=== PATIENT | male | born 1970 | race Caucasian/White ===

== ENCOUNTER 2016-09-09 17:25 | Emergency (ER) | payer MEDICAID ==
[~2016-09-09] VITALS: Ht 180.3 cm; Wt 83.9 kg
--- NOTE | 2016-09-09 17:44 | NUR ---
dr torrez at the bedside for eval and exam.
--- NOTE | 2016-09-09 17:53 | NUR ---
lt ear irrigated per md order.
--- NOTE | 2016-09-09 18:25 | NUR ---
Patient discharged to home in stable conditon. Written and verbal after care instructions given. Patient verbalizes understanding of instructions.
== END 2016-09-09 18:26 | disposition home or self-care (01) ==
LOC: ER 17:25
DX: H61.22 Impacted cerumen, left ear (principal)
CPT/HCPCS: A4663

== ENCOUNTER 2020-08-18 04:43 | Emergency (ER) | payer SELFPAY ==
[~2020-08-18] VITALS: Ht 180.3 cm; Wt 81.6 kg
--- NOTE | 2020-08-18 05:14 | NUR ---
MD Sagastume in room to do MSE.
[2020-08-18] MEDS ORDERED: KETOROLAC TROMETHAMINE 60 MG INJ IM ONE ×2 (05:45)
[2020-08-18 05:54] LABS: BASOPHILS % (AUTO) 0.5 % (0.0-2.0); EOSINOPHILS # (AUTO) 0.2 K/uL (0.0-0.7); EOSINOPHILS % (AUTO) 2.7 % (0.0-7.0); HEMATOCRIT 36.9 % (36.7-47.1); HEMOGLOBIN 12.6 g/dL (12.5-16.3); LYMPHOCYTES # (AUTO) 1.7 K/uL (20.0-40.0); LYMPHOCYTES % (AUTO) 20.6 % (20.5-51.5); MEAN CORPUSCULAR HEMOGLOBIN 31.1 uug (23.8-33.4); MEAN CORPUSCULAR HGB CONC 34 g/dL (32.5-36.3); MEAN CORPUSCULAR VOLUME 90.8 fL (73.0-96.2); MONOCYTES # (AUTO) 0.4 K/uL (2.0-10.0); MONOCYTES % (AUTO) 5.2 % (0.0-11.0); PLATELET COUNT (AUTO) 213 K/uL (152-348); RED BLOOD CELL COUNT(AUTO) 4.06 MIL/uL (4.06-5.63); WHITE BLOOD COUNT (AUTO) 8.4 K/uL (3.6-10.2)
[2020-08-18 06:00] LABS: CREATININE 1.1 mg/dL (0.6-1.3); POTASSIUM 3.6 mmol/L (3.5-5.1)
[2020-08-18 06:06] LABS: BILIRUBIN,TOTAL 0.2 mg/dL (0.2-1.0); TOTAL PROTEIN, SERUM 6.8 g/dL (6.4-8.2)
[2020-08-18 06:08] LABS: *BILIRUBIN,URIN NEGATIVE (NEGATIVE); *BLOOD, URINE NEGATIVE (NEGATIVE); *CLARITY,URINE CLEAR (CLEAR); *COLOR,URINE YELLOW (YELLOW); *KETONES,URINE NEGATIVE (NEGATIVE); *UROBILINOGEN,URINE 0.2 E.U./dl (NORMAL); LEUKOCYTE ESTERASE ,URINE NEGATIVE (NEGATIVE); NITRITE, URINE NEGATIVE (NEGATIVE); UGLUCOSE NEGATIVE (NEGATIVE)
--- NOTE | 2020-08-18 06:30 | NUR ---
Patient is resting upright on bed, on cell phone. No acute distress noted.
--- NOTE | 2020-08-18 06:45 | NUR ---
Note ofelia in EDM - 08/18/20 at 0713 by WILBERTO Patient c/o of 12/15, stating toradol shot did not relieve pain. MD Sagastume made aware.
--- NOTE | 2020-08-18 06:50 | NUR ---
Patient had questions regarding interpretation of their diagnosis, labs, x-rays, CT scan. MD Sagastume called to bedside to discuss with these with the patient.
--- NOTE | 2020-08-18 06:53 | NUR ---
Note ofelia in EDM - 08/18/20 at 0716 by WILBERTO Patient discharged to home in stable condition. Written and verbal after care instructions given. Patient verbalizes understanding of instructions. Stressed follow up or return to ER for worsening s/s. Patient ambulates with steady gait, V/S stable, received copies of labs/x-ray/CT scan, and left with all personal belongings.
--- NOTE | 2020-08-18 07:00 | NUR ---
[facility]
[2020-08-18] MEDS ORDERED: CEFTRIAXONE 500 MG VIAL ONE (07:25)
[2020-08-18] MEDS ORDERED: LIDOCAINE HCL 1% 20 ML VIAL ONE (07:26)
[2020-08-18] MEDS ORDERED: CEFTRIAXONE 500 MG VIAL IM ONE (07:30)
[2020-08-18] MEDS ORDERED: CIPR500T5 PO (07:40)
--- NOTE | 2020-08-18 07:52 | NUR ---
Patient discharged to home in stable condition. Noted walking with stable gait, no signs of acute distress noted. took all belongings. Written and verbal after care instructions given. Patient verbalizes understanding of instructions. Stressed follow up or return to ER for worsening s/s.
[2020-08-18 07:53] VITALS: BP 134/80
[2020-08-21 01:05] LABS: *GC NAA Negative (Negative); *TRIC.VAG. NAA Negative (Negative)
== END 2020-08-18 07:52 | disposition home or self-care (01) ==
LOC: ER 04:57
DX: N41.0 Acute prostatitis (principal); R10.2 Pelvic and perineal pain; R03.0 Elevated blood-pressure reading, without diagnosis of hypertension
CPT/HCPCS: 36415; 71045; 74176; 80053; 81003; 85025; 87491; 96372 ×2; 99284; J0696; J1885; J3490